=== PATIENT | female | born 1940 ===

== ENCOUNTER 2022-07-20 10:00 | Inpatient (IN) | payer OTHER ==
[~2022-07-20] VITALS: Ht 152.4 cm; Wt 55.3 kg
[2022-07-20] MEDS ORDERED: LIPITOR40 MG PO (10:57)
[2022-07-20] MEDS ORDERED: HYDRALAZINE HCL10 MG PO (10:57)
[2022-07-29] MEDS ORDERED: ULTRACET PO (12:59)
[2022-07-29] MEDS ORDERED: INTESTINEX680 M1 PO (12:59)
[2022-07-29] MEDS ORDERED: PEPCID AC20 MG PO (12:59)
== END 2022-07-29 21:31 | disposition home or self-care (01) | DRG 330 ==
LOC: SURG 07-23 10:00 → O/R 07-26 06:32 → SURG 07-26 10:00 → SURH 07-26 16:32 → SURG 07-26 16:45 → SURH 07-26 19:00 → SURG 07-30 10:00
PROVIDERS: Obstetrics & Gynecology Gynecologic Oncology; ADMIT Surgery; ATTEND Surgery
PROC: 07BC4ZZ Excision of Pelvis Lymphatic, Percutaneous Endoscopic Approach (ICD-10-PCS; 2022-07-26)
PROC: 0DBB4ZZ Excision of Ileum, Percutaneous Endoscopic Approach (ICD-10-PCS; 2022-07-26)
PROC: 0UT94ZZ Resection of Uterus, Percutaneous Endoscopic Approach (ICD-10-PCS; 2022-07-26)
PROC: 0UT24ZZ Resection of Bilateral Ovaries, Percutaneous Endoscopic Approach (ICD-10-PCS; 2022-07-26)
PROC: 0UT74ZZ Resection of Bilateral Fallopian Tubes, Percutaneous Endoscopic Approach (ICD-10-PCS; 2022-07-26)
PROC: 0DBW4ZZ Excision of Peritoneum, Percutaneous Endoscopic Approach (ICD-10-PCS; 2022-07-26)
PROC: 0TN74ZZ Release Left Ureter, Percutaneous Endoscopic Approach (ICD-10-PCS; 2022-07-26)
PROC: 0DJD8ZZ Inspection of Lower Intestinal Tract, Via Natural or Artificial Opening Endoscopic (ICD-10-PCS; 2022-07-26)
PROC: 0DTN4ZZ Resection of Sigmoid Colon, Percutaneous Endoscopic Approach (ICD-10-PCS; principal; 2022-07-26 16:45)
PROC: 0DBP4ZZ Excision of Rectum, Percutaneous Endoscopic Approach (ICD-10-PCS; 2022-07-26 16:45)
DX: K57.20 Diverticulitis of large intestine with perforation and abscess without bleeding (principal); K56.49 Other impaction of intestine; D12.5 Benign neoplasm of sigmoid colon; N73.6 Female pelvic peritoneal adhesions (postinfective); I11.9 Hypertensive heart disease without heart failure; N80.03 Adenomyosis of the uterus; N83.291 Other ovarian cyst, right side; N83.8 Other noninflammatory disorders of ovary, fallopian tube and broad ligament; K63.89 Other specified diseases of intestine